=== PATIENT | female | born 1970 | race Caucasian/White ===

== ENCOUNTER 2020-11-17 08:37 | Emergency (ER) | payer OTHER ==
[~2020-11-17] VITALS: Ht 157.5 cm; Wt 72.1 kg
== END 2020-11-17 11:03 | disposition home or self-care (01) ==
LOC: ER 08:37
DX: G51.0 Bell's palsy (principal)

== ENCOUNTER 2023-07-24 07:51 | Emergency (ER) | payer OTHER ==
[~2023-07-24] VITALS: Ht 157.5 cm; Wt 72.1 kg
[2023-07-24] MEDS ORDERED: ZITHROMAX500 MG PO (10:04)
[2023-07-24] MEDS ORDERED: FLONASE16 GM NASAL (10:40)
[2023-07-24] MEDS ORDERED: AZITHROMYCIN 250 MG in DEXTROSE 5 % IN WATER 250 ML IV STA (10:42)
[2023-07-24] MEDS ORDERED: CEFTRIAXONE SODIUM 1,000 MG VIAL IM STA (10:44)
== END 2023-07-24 11:24 | disposition home or self-care (01) ==
LOC: ER 07:51
DX: J32.0 Chronic maxillary sinusitis (principal); R53.81 Other malaise; Z20.822 Contact with and (suspected) exposure to COVID-19